=== PATIENT | female | born 1965 | race Caucasian/White ===

== ENCOUNTER 2017-07-02 15:12 | Emergency (ER) | payer OTHER ==
[2017-07-02 15:29] VITALS: TEMP 99; BMI 24.4
--- NOTE | 2017-07-02 15:37 | PDOC ---
History of Present Illness - General Chief Complaint: Injury Stated Complaint: FALL, LOW BP, BRADYCARDIA,RT ARM INJURY History Source: Patient Exam Limitations: No Limitations - History of Present Illness Initial Comments: This is a 51 YOF with h/o RA (on Humira) who is BIBA for FOOSH with subsequent right wrist pain. She notes having been walking across a crosswalk at [facility] in shoes with no tread when she slipped and fell. She denies any preceding symptoms but cannot actually recall hitting the ground when she fell. She cannot recall whether she hit her head, hurt her neck, or lost consciousness , and she cannot remember the position in which she fell. She was able to stand up and walk after the incident, and had subsequent lightheadedness and mild SOB subsequently. She initially had mild neck tightness but this has resolved. She denies chest pain, palpitations, headache, numbness, tingling, focal weakness, difficulty walking/talking/swallowing, abdominal pain, or recent dysuria or cough. EMS notes that the patient was bradycardic to 42 but was in sinus rhythm without obvious ischemic changes on their field EKG. Her initial blood pressure was in the 80s systolic on their arrival on scene, but this improved to 98 systolic with about 200cc IVF. The patient states that in the past, she has been told that her blood pressure runs low, but she denies having slow heart rate in the past. Past History - Past Medical History Allergies/Adverse Reactions: Allergies Allergy/AdvReac Type Severity Reaction Status Date / Time No Known Allergies Allergy Verified 07/02/17 15:29 Home Medications: Ambulatory Orders Adalimumab [Humira] 20 mg SQ 07/02/17 Oxycodone HCl/Acetaminophen [Percocet 5-325 mg Tablet] 1 tab PO Q6H #6 tablet MDD 6 07/02/17 Review of Systems - Review of Systems Able to Perform ROS?: Yes Constitutional: No: Chills, Fever, Unexplained wgt Loss HEENTM: No: Nose Congestion, Throat Pain Respiratory: Yes: Shortness of Breath. No: Cough Cardiac (ROS): Yes: Lightheadedness. No: Chest Pain, Palpitations ABD/GI: No: Constipated, Diarrhea, Nausea, Vomiting : No: Burning, Dysuria Musculoskeletal: Yes: Other (left wrist pain). No: Back Pain, Neck Pain Integumentary: No: Bruising, Rash Neurological: No: Headache, Numbness, Tingling, Weakness Endocrine: No: Unexplained Weight Gain, Unexplained Weight Loss *Physical Exam - Physical Exam General Appearance: Yes: Nourished, Appropriately Dressed, Other (alert, oriented, well-appearing adult female in minimal distress whose ). No: Apparent Distress HEENT: positive: EOMI, Normal Voice, Hearing Grossly Normal, Other (no cephalohematoma, no scalp laceration, no raccoon eyes, no romero sign, no hemotympanum, no CSF rhinorrhea/otorrhea). negative: Scleral Icterus (R), Scleral Icterus (L), Nasal Congestion Neck: positive: Trachea midline, Supple. negative: Tender, Rigid Respiratory/Chest: positive: Lungs Clear, Normal Breath Sounds. negative: Respiratory Distress, Crackles, Rhonchi, Stridor, Wheezing Cardiovascular: positive: Regular Rhythm, S1, S2, Bradycardia. negative: Edema , JVD, Murmur Gastrointestinal/Abdominal: positive: Normal Bowel Sounds, Flat, Soft. negative : Tender, Organomegaly, Pulsatile Mass, Guarding Musculoskeletal: positive: Normal Inspection. negative: Decreased Range of Motion, Vertebral Tenderness Extremity: positive: Normal Capillary Refill, Normal Inspection, Normal Range of Motion. negative: Tender, Cyanosis Integumentary: positive: Normal Color, Dry, Warm. negative: Erythema, Rash, Bruising Neurologic: positive: oxygraph operator II-XII NML intact, Fully Oriented, Alert, Normal Mood/ Affect, Normal Response, Motor Strength 5/5, Numbness (minimal sunjective). negative: EOM Palsy, Facial Droop, Sensory Deficit, Confused, Disoriented Heart Score/ECG Review #1 Sinus bradycardia, rate of 41, normal axis and intervals, no ST-T changes ED Treatment Course - LABORATORY CBC & Chemistry Diagram: 07/02/17 15:30 07/02/17 15:30 - RADIOLOGY Radiology Studies Ordered: Category Date Time Status CHEST X-RAY PORTABLE* [RAD] Stat Radiology 07/02/17 15:25 Ordered ELBOW-LEFT [RAD] Stat Radiology 07/02/17 15:25 Ordered FOREARM- LEFT [RAD] Stat Radiology 07/02/17 15:25 Ordered WRIST W/HAND-RIGHT* [RAD] Stat Radiology 07/02/17 15:25 Ordered Medical Decision Making - Medical Decision Making Patient p/w physical trauma sustained Initial Vital Signs Temp Pulse Resp BP Pulse Ox 99 F 44 L 19 103/59 99 07/02/17 15:27 07/02/17 15:27 07/02/17 15:27 07/02/17 15:27 07/02/17 15:27 Exam: Right distal FA with deformity typical of colles fracture, no skin tenting , good distal cap refill, no numbness/tingling, moves all fingers. GCS 15, protecting airway, bilateral breath sounds, no flail chest, abdomen soft, pelvis stable, no thigh hematoma, PERRLA, moving all extremities, no scalp contusion, no cephalohematoma, no scalp laceration, no raccoon eyes, no romero sign, no hemotympanum, no CSF rhinorrhea/otorrhea. DDX IBNLT: Colles fracture, both-bone distal FA fracture, carpal bone fracture/ dislocation, hematoma, neurovascular injury, etc. W/U ordered: CBCD CMP Mg Phos Cardiac panel UA UCx EKG CXR Rt Wrist/FA/Elbow XR TX ordered: Ofirmev, Fentanyl EKG: Sinus bradycardia, rate of 42, normal axis and intervals, no ST-T changes. CXR: NADP Rt Wrist XR: Comminuted displaced distal radius fracture. Rt FA XR: NADP Rt Elbow XR: NADP HCT: NADP Vital Signs Temperature 99 F 07/02/17 15:27 Pulse Rate 61 07/02/17 18:23 Respiratory Rate 18 07/02/17 18:23 Blood Pressure 139/80 07/02/17 18:23 O2 Sat by Pulse Oximetry (%) 100 07/02/17 18:23 Reassessment: After placement in sugar tong splint, patient reports better comfort, cap refil 2 seconds, able to move fingers. 07/02/17 17:47 Spoke with PA for Dr. Betancourt's office. They will see the patient in clinic tomorrow between noon and 2pm. We will place a sugar tong splint and sling. The patient is advised not to take Motrin or ASA or other blood thinning medication. She is advised to take Tylenol for pain. The patient has gotten significant relief of symptoms with ED medications. Workup is not concerning for emergency-level pathology at this time. The patient is appropriate for discharge with close outpatient follow up. Referral information is given for orthopedist on-call. She will go to Dr. Betancourt's clinic tomorrow at noon. Return precautions are discussed and they will come back to the ER if necessary. *DC/Admit/Observation/Transfer Diagnosis at time of Disposition: Fall from ground level Distal radius fracture, right Qualifiers: Encounter type: initial encounter Fracture type: closed Fracture morphology: Colles' Qualified Code(s): S52.531A - Colles' fracture of right radius, initial encounter for closed fracture - Discharge Dispostion Disposition: HOME Condition at time of disposition: Stable Admit: No - Prescriptions Prescriptions: Oxycodone HCl/Acetaminophen [Percocet 5-325 mg Tablet] 1 tab PO Q6H #6 tablet MDD 6 - Referrals Referrals: Tammy Perla [Primary Care Provider] - Chris Betancourt MD [Staff Physician] - - Patient Instructions Printed Discharge Instructions: DI for Distal Radius Fracture Additional Instructions: You were seen in the ER for a wrist fracture. We took x-rays which showed the fracture. We placed a splint around that wrist, and gave you a sling, which are not to be taken off until you see the orthopedist and speak with them about it ( we are giving you referral information for their clinic). Please follow up at their clinic at noon tomorrow (or as late as 2 pm if you cannot make it at noon) . After our assessment, we do not believe you are having a medical emergency any longer at this time, and we believe you are safe to go home. Please keep the splint dry; do not expose it to any water. Take 650 mg Tylenol as needed for pain (avoid Motrin or aspirin or other medications because they increase the risk of bleeding in case you do need a surgery this week). If you need it, please take a Percocet (which we are sending to your pharmacy). Please come back to the ER at any time, 24 hours a day, for any new or worsening symptoms, especially severe pain or worsening hand numbness and tingling. If you are having severe or life threatening symptoms, or symptoms that make it unsafe to drive or have someone drive you, please call 911. - Post Discharge Activity
[2017-07-02] MEDS ORDERED: ACETAMINOPHEN 1000 MG/100 ML VIAL (NON FORMULARY) IVPB ONE (15:41)
[2017-07-02] MEDS ORDERED: ACETAMINOPHEN INJECTION 100 ML IVPB ONE (15:43)
[2017-07-02 15:57] LABS: BASO % 0.9 % (0-2.0); EOS % 0.7 % (0-4.5); HEMATOCRIT 33.3 % (32.4-45.2); HEMOGLOBIN 11.5 GM/dL (10.7-15.3); LYMPH % 29.2 % (8-40); MCHC 34.5 g/dl (32.0-36.0); MEAN CELL VOLUME 92.8 fl (80-96); MEAN PLT VOLUME 8.3 fl (7.5-11.1); MONO % 6.1 % (3.8-10.2); NEUT % 63.1 % (42.8-82.8); PLATELET COUNT 208 K/MM3 (134-434); RBC 3.59 M/mm3 (3.60-5.2); RDW 12.5 % (11.6-15.6); WHITE BLOOD COUNT 7.3 K/mm3 (4.0-10.0)
[2017-07-02 16:11] LABS: INR 1.08 (0.82-1.09); PROTHROMBIN TIME (PATIENT) 12.2 SEC (9.7-13.0)
[2017-07-02 16:22] LABS: ALBUMIN 3.6 g/dl (3.4-5.0); ANION GAP 8 (8-16); BLOOD UREA NITROGEN 12 mg/dL (7-18); CALCIUM 8.2 mg/dL (8.5-10.1); CHLORIDE 109 mmol/L (98-107); CO2 24 mmol/L (21-32); CREATININE 0.9 mg/dL (0.55-1.02); GLUCOSE,RANDOM 100 mg/dL (74-106); PHOSPHOROUS 2.9 mg/dL (2.5-4.9); POTASSIUM 3.9 mmol/L (3.5-5.1); SGOT/AST 14 U/L (15-37); SGPT/ALT 18 U/L (12-78); SODIUM 141 mmol/L (136-145)
[2017-07-02 16:28] LABS: ALK PHOS 42 U/L (45-117); BILIRUBIN,TOTAL 0.4 mg/dL (0.2-1.0); TOT PROT 6.5 g/dl (6.4-8.2)
--- NOTE | 2017-07-02 18:11 | PDOC ---
Attending Attestation - HPI HPI: 07/02/17 18:42 The patient is a 51 year old female with past medical history of rheumatoid arthritis who presents to the ED s/p mechanical fall this afternoon while at [facility]. She states she was walking in a crosswalk and slipped, stating she is unsure of how she fell due to the initial shock. She denies any LOC or visual changes. She denies any preceding symptoms leading up to the fall. She reports feeling pain right after her fall in her right wrist, stating it is 10/ 10 in severity with great difficulty with manipulation. She denies any numbness or tingling. She complains of mild pain in her right elbow and knee as well as some mild shortness of breath and lightheadedness. She denies any recent fevers or chills. - Physicial Exam PE: 07/02/17 18:42 GENERAL: Awake, alert, and fully oriented, in no acute distress HEAD: No signs of trauma EYES: PERRLA, EOMI, sclera anicteric, conjunctiva clear ENT: Auricles normal inspection, hearing grossly normal, nares patent, oropharynx clear without exudates. Moist mucosa NECK: Normal ROM, supple, no lymphadenopathy, JVD, or masses LUNGS: Breath sounds equal, clear to auscultation bilaterally. No wheezes, and no crackles HEART: Regular rate and rhythm, normal S1 and S2, no murmurs, rubs or gallops ABDOMEN: Soft, nontender, normoactive bowel sounds. No guarding, no rebound. No masses EXTREMITIES: R wrist: Dinner fork deformity of wrist with exquisite tenderness, mild tenderness over dorsal hand and fingers. 2+ radial pulse No edema. No clubbing or cyanosis. No cords, erythema. NEUROLOGICAL: Cranial nerves II through XII grossly intact. Normal speech, normal gait SKIN: Warm, Dry, normal turgor, no rashes or lesions noted. - Medical Decision Making 07/02/17 18:43 Documentation prepared by Fartun Dwyer, acting as emergency medical technician for Analilia Gonzalez MD. <Fartun Dwyer - Last Filed: 07/02/17 18:42> - Medical Decision Making 07/20/17 21:04 Pt presents to the ED complaining of wrist pain and deformity after a mehanical trip and fall. Wrist is neurovascularly intact. Questionable LOC. CT head peformed to rule out intracranial injury and is negative. Xrays show comminuted distal radius fx. Films were reviewed by ortho consult, who recommends splinting the patient and he will see her in the office tomorrow. 07/20/17 21:05 <Analilia Gonzalez - Last Filed: 07/20/17 21:07>
[2017-07-02 18:24] VITALS: BP 139/80; PULSE 61
--- NOTE | 2017-07-03 10:46 | EKG ---
Test Reason : Blood Pressure : / mmHG Vent. Rate : 045 BPM Atrial Rate : 045 BPM P-R Int : 156 ms QRS Dur : 082 ms QT Int : 486 ms P-R-T Axes : 049 068 053 degrees QTc Int : 420 ms SINUS BRADYCARDIA WITH PREMATURE ATRIAL COMPLEXES OTHERWISE NORMAL ECG NO PREVIOUS ECGS AVAILABLE Confirmed by CHARITY GREENE MD ([id number]) on 07/03/2017 10:45:23 AM Referred By: Confirmed By:CHARITY GREENE MD
== END 2017-07-02 19:19 | disposition home or self-care (01) ==
LOC: JER 15:12
PROC: 2W3CX1Z Immobilization of Right Lower Arm using Splint (ICD-10-PCS; principal; 2017-07-02)
DX: S69.81XA Other specified injuries of right wrist, hand and finger(s), initial encounter (principal); S52.531A Colles' fracture of right radius, initial encounter for closed fracture; W18.39XA Other fall on same level, initial encounter; Y93.89 Activity, other specified; Y92.59 Other trade areas as the place of occurrence of the external cause; Y99.8 Other external cause status
CPT/HCPCS: 36415; 70450-TC; 71045-TC-FY; 73070-TC-RT-FY; 73090-TC-RT-FY; 73110-TC-RT-FY; 73130-TC-RT-FY; 80053; 82550; 83735; 84100; 84484; 85025; 85610; 86850; 86900; 86901; 93005; 93010; 99284-25; J0131

== ENCOUNTER 2017-07-05 10:33 | Day surgery (SDC) | payer OTHER ==
[2017-07-04 14:11] VITALS: BMI 23.7
--- NOTE | 2017-07-05 08:33 | HP ---
[facility] - Chief Complaint Chief Complaint: right wrist fx - Past Medical History Allergies/Adverse Reactions: Allergies Allergy/AdvReac Type Severity Reaction Status Date / Time No Known Allergies Allergy Verified 07/02/17 15:29 ...LMP Comment: 2YS AGO - Current Medications Current Medications: Home Medications Medication Instructions Recorded Adalimumab [Humira] 20 mg SQ MONTHLY 07/02/17 Oxycodone HCl/Acetaminophen 1 tab PO Q6H #6 tablet MDD 6 07/02/17 [Percocet 5-325 mg Tablet] Satellite Physical Exam - Physical Examination General Appearance: Well Nourished, Well Developed, Alert & Oriented x3 ENT: Clear Lung: Normal air movement Heart: Regular rate & rhythm Extremities: Other (right wrist- splint intact, + swelling, + deformity, + ttp, decr rom, nvi xrays show displaced distal radius fx) Neurological: Intact, Alert, Oriented Satellite Impression/Plan - Impression/Plan Impression: right distal radius fx Operative Procedure: right distal radius orif Date to be Performed: 07/05/17
[2017-07-05 11:12] LABS: URINE APPEARANCE CLEAR; URINE BILIRUBIN NEGATIVE (<2.0 mg/dL); URINE BLOOD 2+ (NEGATIVE); URINE COLOR LTYELLOW; URINE GLUCOSE (UA) NEGATIVE (NEGATIVE); URINE KETONE NEGATIVE (NEGATIVE); URINE LEUK ESTERASE NEGATIVE (NEGATIVE); URINE NITRITE NEGATIVE (NEGATIVE); URINE PROTEIN NEGATIVE (NEGATIVE); URINE UROBILINOGEN NEGATIVE mg/dL (0.2-1.0)
[2017-07-05 11:27] LABS: EPI CELLS RARE /HPF (FEW); URINE MUCUS RARE
[2017-07-05] MEDS ORDERED: ROPIVACAINE HCL 0.5% 30ML VIAL ONE ×2 (12:01→12:51)
[2017-07-05] MEDS ORDERED: MIDAZOLAM HCL 2 MG/2 ML SINGLE DOSE VIAL ONE ×2 (12:01)
[2017-07-05] MEDS ORDERED: PROPOFOL 20 ML ONE ×2 (13:09)
[2017-07-05] MEDS ORDERED: SUCCINYLCHOLINE CHLORIDE 200 MG/10 ML VIAL ONE (13:09)
[2017-07-05] MEDS ORDERED: ceFAZolin SODIUM 1 GM VIAL IVPB ONE (13:23)
--- NOTE | 2017-07-05 14:57 | OP ---
Operative Note - Note: Operative Date: 07/05/17 ([facility]) Pre-Operative Diagnosis: right distal radius fx Operation: right distal radius ORIF with bone grafting Post-Operative Diagnosis: Same as Pre-op Surgeon: Chris Betancourt Layout Worker: Bebeto Gómez Anesthesiologist/TAPE MAKER: Vasile Smith Anesthesia: General, Local Estimated Blood Loss (mls): 0 (tourniquet) Operative Report Dictated: Yes
[2017-07-05 15:41] VITALS: TEMP 98
--- NOTE | 2017-07-05 15:50 | OP ---
DATE OF OPERATION: 07/05/2017 PREOPERATIVE DIAGNOSIS: Comminuted intraarticular displaced right distal radius fracture. POSTOPERATIVE DIAGNOSIS: Comminuted intraarticular displaced right distal radius fracture. PROCEDURE: Right distal radius open reduction internal fixation, bone grafting. SURGEON: Kinga Juarez M.D. MEDICAL REVIEWER: Joe Grajeda NURSE GAME WARDEN: , ROTATING EQUIPMENT SPECIALIST ANESTHESIA: Right interscalene block. LMA anesthesia. DRAINS: None. COMPLICATIONS: None. SPECIMEN: None. FLUID REPLACEMENT: 1000 mL Plasmalyte. BLOOD LOSS: None. BLOOD GIVEN: None. BONE GRAFT: Bent 1 mL putty. INDICATION: This patient is a 51-year-old female with preoperative diagnosis of highly comminuted distal displaced angulated distal radius fracture. After understanding the potential risks, complications, alternatives, benefits to surgery versus nonsurgical treatment, the patient elected to undergo this procedure. Extensive preoperative discussions were had with her and her , and they understand that likely the wrist will never be the same. She may have decreased function, decreased range of motion, decreased strength, chronic pain, development of post traumatic arthritis, need for additional surgery, deformity, need for physical therapy, chronic stiffness, lifelong risk of infection, need for hardware removal, etc. DESCRIPTION OF PROCEDURE: The patient is brought to the operating room, peripheral IV placed, IV sedation given, 1 g of IV Ancef was given. Right interscalene block was performed. LMA anesthesia was induced. Right upper extremity is prepped and draped in sterile fashion, elevated, exsanguinated with Esmarch bandage, tourniquet inflated to 250 mmHg. Typical FCR approach is marked with marking pen. Incision made with a number 15 scalpel blade. Subcutaneous hemostasis achieved with bipolar cautery. Dissection done with Littler scissors and my finger bluntly down to the pronator quadratus. Subsequently, Weitlaner retractors were placed into the wound. The pronator quadratus was taken off the distal radius with a fresh number 15 scalpel blade and subperiosteal dissection was done with a Fallon elevator. This exposed the fracture sites. A provisional reduction was performed, it looks much better. X-rays were taken with the mini C-arm in the AP, lateral in multiple view planes. Additional fine tuning of the fracture reduction was done, and a standard [employer] low profile DVR 4-hole plate was placed onto the distal radius and held in place with K-wires. X-rays were taken, it was adjusted a bit. X-rays taken again, overall it was quite good. I put in one 3.5-mm screw of 12 mm of length in the oblong hole, in the proximal row, and the DRUJ distal locking screw which was in the distal proximal row which was partially threaded and 22 mm of length. X-rays were taken. Overall there was excellent reduction of the multiple fracture fragments, and good jewish of radial height, volar tilt, and radial inclination. Then in the standard fashion I put in 2 more proximal 3.5-mm screws of 13 and 12 mm of length and 5 more distal screws, all of which were partially threaded, locking from 20 to 24 mm in length. X-rays were taken along the way. Overall there was excellent fixation. The fracture was very well reduced. There was good jewish of the articular cartilage and surface. All but 2 distal screws were used. I then used 2 mL of Bent bone graft putty, put it in and around the fractures on the volar surface. I then repaired the pronator quadratus over the bone graft end plate with 2-0 Vicryl suture, 4-0 undyed Vicryl was used for closing the deep dermal layer, and final skin approximation was done with a running subcuticular 4-0 Biosyn then washed and dried, covered with Steri-Strips. Next our attention turned to the dorsal aspect. There was a displaced cortical fragment. A very small incision was made under C-arm fluoroscopy guidance. Dissection done down to the piece. Small self-retaining Weitlaner retractors were placed into the wound. It was noted that a dorsal extension tendon was interposed between this fracture fragment and the distal radius itself, which is why it was so displaced. I then put in the remaining 1 mL of Bent putty into the dorsal aspect of the fracture and put back this cortical window, pressing it into place. Reduction was adequate. I closed the periosteum in place and then closed the deep dermal layer with 4-0 undyed Vicryl, and the final skin reapproximation with a running subcuticular 4-0 Biosyn stitch. This area was also washed and dried, covered with Steri-Strips. The entire area was covered with 4x4s, flushed, fluffs between the fingers, Webril, and a 4-inch Ortho-Glass volar splint was applied, wrapped with Espinoza and Coban. Tourniquet was taken down after total tourniquet time of about 1 hour. There were no complications during the case. The patient tolerated the procedure quite well and was brought to the ambulatory recovery room in stable condition. KINGA JUAREZ M.D. [id number]
[2017-07-05 17:14] VITALS: BP 133/76; PULSE 83
== END 2017-07-05 17:05 | disposition home or self-care (01) ==
LOC: JASU-SURG 10:33
PROVIDERS: ATTEND Orthopaedic Surgery
PROC: 0PSH04Z Reposition Right Radius with Internal Fixation Device, Open Approach (ICD-10-PCS; principal; 2017-07-05 12:00)
DX: S52.571A Other intraarticular fracture of lower end of right radius, initial encounter for closed fracture (principal); X58.XXXA Exposure to other specified factors, initial encounter; Y93.9 Activity, unspecified; Y92.9 Unspecified place or not applicable; Y99.9 Unspecified external cause status
CPT/HCPCS: 76000-TC-FY; 81003; 81015; 94760

== ENCOUNTER 2021-04-22 14:26 | Emergency (ER) | payer OTHER ==
[2021-04-22 14:35] VITALS: BP 107/70; PULSE 76; TEMP 98.6; BMI 20.3
== END 2021-04-22 16:41 | disposition home or self-care (01) ==
LOC: JERFT 14:26
DX: M79.605 Pain in left leg (principal)
CPT/HCPCS: 93971-TC; 99283-25